=== PATIENT | male | born 1980 | race African-American/Black ===

== ENCOUNTER 2018-08-10 03:26 | Emergency (ER) | payer OTHER ==
[~2018-08-10] VITALS: Ht 170.2 cm; Wt 79.5 kg
[2018-08-10 03:33] VITALS: BP 158/95
[2018-08-10] MEDS ORDERED: HYDROGEN PEROXIDE 118 ML SOLUTION TP ONE (03:45)
[2018-08-10] MEDS ORDERED: BACITRACIN 0.9 GM PACKET OINTMENT TP ONE (04:15)
== END 2018-08-10 04:53 | disposition home or self-care (01) ==
LOC: EMS 03:27
DX: S51.851A Open bite of right forearm, initial encounter (principal); S00.01XA Abrasion of scalp, initial encounter; Y04.1XXA Assault by human bite, initial encounter; Y93.89 Activity, other specified; Y92.89 Other specified places as the place of occurrence of the external cause; Y99.8 Other external cause status